=== PATIENT | male | born 1955 | race Caucasian/White ===

== ENCOUNTER 2017-01-13 21:26 | Observation (INO) | payer OTHER ==
[~2017-01-13] VITALS: Ht 182.9 cm; Wt 111.0 kg
[2017-01-13 21:39] VITALS: BP 145/88; PULSE 77; RESP 20; O2SAT 97
--- NOTE | 2017-01-13 22:07 | ED.REPORT ---
HPI-Back Pain 40 and Over Date of Service Jan 13, 2017 ED Provider: Geoff Kyle DO Pt is a 61 year old male with a history of HTN and chronic back pain who presents to the ED via EMS complaining of worsening back pain onset this morning when he woke up. He denies abdominal pain and any other symptoms. He was unable to get up from the floor secondary to his pain, prompting him to call EMS. The pt reports that he was doing yard work for the last 2 days, resulting in his back pain. Pt has took Advil as well as Tylenol and Codeine today with minimal relief. Nursing Notes Stated Complaint: BACK PAIN Chief Complaint: Back Pain or Injury Nursing Notes Reviewed: Yes Allergies: Coded Allergies: Penicillins (Verified Allergy, Unknown, swelling, 01/13/17) General Time Seen by MD: 22:07 Chief Complaint Back pain Hx Obtained From: Patient, EMS Arrived By: Ambulance Sudden in Onset?: No Onset Occurred: 5 - 8 hours ago Symptom Duration: Since onset Location: : Generalized Quality: Painful Radiation: : Does not radiate Severity: Current: Moderate Severity: Maximum: Moderate Recent Healthcare: No recent doctor visit, No recent hospitalization Similar Sx Previous: No Past Medical History Past Medical History Chronic back pain Reports: Hypertension Past Surgical History Denies Smoking History Current Every Day Smoker Social History Other Social History: Good social support Ambulatory Status Independent Review of Systems Constitutional: Denies: Fever Respiratory: Denies: Non-productive cough, Shortness of breath Cardiovascular: Reports: Chest pain GI: Denies: Abdominal pain Musculoskeletal: Reports: Back pain Complete sys rev & neg: except as marked. Physical Exam Initial Vital Signs Vital Signs (First) Date Time Temp Pulse Resp B/P Pulse Ox O2 Delivery O2 Flow Rate FiO2 01/13/17 21:39 36.7 77 20 145/88 97 Room Air Initial VS: Reviewed Head / Eyes: Atraumatic, Normocephalic Neck: Supple, Full range of motion Extremities: Vascular intact, Neuro intact Skin: Warm, Dry, No cyanosis Psychiatric: Mood/affect normal, Behavior normal General/Constitutional: Awake, Alert Respiratory / Chest: Atraumatic, Breath sounds NL, Breath sounds = bilat Cardiovascular: Heart rate NL, Regular rhythm, Heart sounds NL Abdomen: Atraumatic, Soft, Non-tender No abdominal bruits BACK: Reproducible pain with straight leg raising. Neurologic: Oriented X3, Speech NL, CN II - XII intact Interpretation & Diagnostics CT ANGIOGRAM ABDOMEN, CHEST, PELVIS: Conclusion: There is no evidence of abdominal aortic aneurysm or dissection. There is left nephrolithiasis without evidence of hydronephrosis. There is calcification in the right adrenal gland which may be the residual of previous granulomatous disease Transmitted to the Ed at 00:23 by Gallo Reeder MD Lab Results Interpretation Result Diagram: 01/13/17 2302 01/13/17 2302 Test 01/13/17 23:02 01/14/17 01:38 White Blood Count 7.8th/mm3 (3.8-10.1) Red Blood Count 4.69mil/mm3 (4.40-5.80) Hemoglobin 14.4g/dL (13.8-17.2) Hematocrit 41.2% (41.0-50.0) Mean Corpuscular Volume 87.8fL (81-100) Mean Corpuscular Hemoglobin 30.7pg (27.0-35.0) Mean Corpuscular Hemoglobin Concent 35.0% (32.0-37.0) Red Cell Distribution Width 12.5% (12.3-15.4) Platelet Count 217bil/L (150-400) Neutrophils (%) (Auto) 64.1% (40-74) Lymphocytes (%) (Auto) 20.9% (14-46) Monocytes (%) (Auto) 8.7% (4-12) Eosinophils (%) (Auto) 5.5% (0-5) Basophils (%) (Auto) 0.4% (0-3) D-Dimer 0.52mg/L FEU (<0.50) Sodium Level 141mEq/L (134-144) Potassium Level 4.0mEq/L (3.5-5.2) Chloride Level 105mEq/L (97-108) Carbon Dioxide Level 25mmol/L (18-29) Blood Urea Nitrogen 17mg/dL (8-27) Creatinine 1.04mg/dL (0.76-1.27) Estimat Glomerular Filtration Rate 77mL/min (>59) Glucose Level 133mg/dL (60-99) Calcium Level 8.6mg/dL (8.5-10.1) Total Bilirubin 0.2mg/dL (0.0-1.2) Aspartate Amino Transf (AST/SGOT) 19U/L (0-50) Alanine Aminotransferase (ALT/SGPT) 19U/L (0-44) Alkaline Phosphatase 73U/L (25-160) Total Protein 6.5g/dL (6.4-8.4) Albumin 3.7g/dL (3.4-5.0) Hold Velez Top Tube Received (Received) Lab Results Interpretation: Troponin - negative ECG Interpretation Time: 23:27 Interpreted by: ED physician Normal ECG Interpretation: Normal ECG w/ rate of... (61) Re-Eval/Medical Decision Med Decision/Clinical Course Myocardial infarction, dissection and AAA rupture all ruled out. Mr. Gray received IV opiates. He then became precipitously hypotensive. He developed chest pain. This all resolved with fluids. This is what prompted the CT scanning and EKG and troponin. His pain was adequately controlled until he tried to move. Once he tried to move up off the bed the pain was too severe. He is not at all comfortable being discharged home. I consulted with our hospitalist we will admit him for pain control. Source of Hx: Old records Re-Evaluation/Progress #1: Time of Eval: 23:20 Re-Evaluation/Progress Note: Pt rechecked. Precipitous drop in blood pressure to 50 after he developed chest pain, requiring an ECG. His back is completely pain free now. All questions addressed. Re-Evaluation/Progress #2: Time of Eval: 00:56 Re-Evaluation/Progress Note: Pt rechecked. Informed pt of results. His reports that the pt has similar blood pressure symptoms when he had a colonoscopy. He is pain free and his vitals are normal. He is responding to fluids. All questions addressed. Re-Evaluation/Progress #3: Time of Eval: 01:49 Re-Evaluation/Progress Note: Pt informed of plan for admission. Pt understands and agrees with plan for admission. All questions addressed. Consultation #1: Call Returned at: 01:48 Note: Spoke with pt's nurse. Per nurse, the was expressing concern about taking the patient home as he was unable to get up from the floor after laying down. She would like for the pt to be admitted. Consultation #2: Referral / Consult Name: Sullenberger,Nuha E DO Call Returned at: 02:12 [place]: Will see patient, Agrees with eval, Agrees with plan, Accepts admit Counseled Regarding: Diagnosis, Lab results, Need for admission Discharge & Departure Impression: Primary Impression: Intractable back pain Disposition: ADMITTED TO HOSPITAL Discharge Condition All VS Reviewed: Yes Condition: Stable Referrals: NENITA (PCP) Scribe Attestation Portions of this note were transcribed by Lourdes Tian. I, Dr. Kyle personally performed the history, physical exam and medical decision-making; I reviewed and confirmed the accuracy of the information in the transcribed note. Signed by : Gail Reyez, 01/13/17. copies to: Geoff Webster DO Jan 13, 2017 22:07 Lourdes Gonzáles Jan 13, 2017 22:37
[2017-01-13] MEDS ORDERED: HYDROmorphone 0.5 mg/0.5 mL iSecure Syringe IVPUSH PRN (22:35)
[2017-01-13] MEDS ORDERED: Dexamethasone 10 mg/mL Inj IVPUSH ONE (22:35)
[2017-01-13 23:06] LABS: BASOPHILS % (AUTO) 0.4 % (0-3); EOSINOPHILS % (AUTO) 5.5 % (0-5); MONOCYTES % (AUTO) 8.7 % (4-12); Mean Corpuscular Hemoglobin 30.7 pg (27.0-35.0); Mean Corpuscular Volume 87.8 fL (81-100); NEUTROPHILS % (AUTO) 64.1 % (40-74); Platelet Count 217 bil/L (150-400)
[2017-01-13 23:15] VITALS: BP 106/62; PULSE 45; RESP 16; O2SAT 94
[2017-01-13 23:25] VITALS: BP 67/36; PULSE 51; RESP 13; O2SAT 96
[2017-01-13] MEDS ORDERED: 0.9% Sodium Chloride 1,000 ML IV ONE (23:25)
[2017-01-13 23:38] VITALS: BP 101/64; PULSE 76; RESP 13; O2SAT 95
[2017-01-13 23:40] VITALS: BP 109/63; PULSE 75; RESP 13; O2SAT 96
[2017-01-14 00:10] VITALS: BP 129/80; PULSE 84; RESP 17; O2SAT 96
[2017-01-14] MEDS ORDERED: _HYDROcodone/APAP 5-325 mg Tablet PO PRN (01:30)
[2017-01-14] MEDS ORDERED: _oxyCODONE/APAP 5-325 mg Tablet PO PRN (01:50)
[2017-01-14] MEDS ORDERED: Polyethylene Glycol (PEG) 17 Gm Powder PO PRN (02:25)
[2017-01-14] MEDS ORDERED: Ondansetron 2 mg/mL 2 mL Inj IVPUSH PRN (02:25)
[2017-01-14] MEDS ORDERED: Alum-Mag Hydrox-Simeth 30 mL Suspension PO PRN (02:25)
[2017-01-14 02:27] VITALS: BP 146/90; PULSE 89; RESP 14; O2SAT 95
--- NOTE | 2017-01-14 02:40 | PCM.HPMED ---
Subjective Date of Service Jan 14, 2017 Primary Provider: Admitting Physician: Nuha Mccoy DO Primary Care Physician: Noel Attending Physician: Nuha Mccoy DO Chief Complaint: Intractable back pain and hypotension History of Present Illness: 61-year-old male with history of hypertension chronic back pain who presented to the emergency department due to intractable back pain, R>L, that started this morning when he awoke. The patient states yesterday he was working in the yard with a prolonged time spent in a single position. He was not having pain yesterday evening. When he awoke this morning his low back was sore and gradually tightened up and pain increased until he was unable to carry on any level of activity. Patient denies focal neurological deficits, numbness or tingling, or shooting pain. Denies saddle paresthesia as well as being unable to control his bowel or bladder. In the emergency room the patient was given 0.5 mg of Dilaudid which dropped his systolic blood pressure into the mid 50s and the patient developed chest pain and shortness of breath. This resolved with fluid administration. EKG and troponin were unremarkable. Patient was then sent to CT for chest/abdomen/pelvis which was negative for AAA. Of note there was a nonobstructive nephrolithiasis. Patient denies fever, chills, nausea, vomiting, diarrhea, dysuria, hematuria, or chest/abdominal pain. His chronic low back pain has been managed successfully with chiropractics over the last couple of year. Review of Systems: Complete review of systems performed; pertinent positives and negatives per history of present illness, all other systems reviewed and are negative Allergies Coded Allergies: hydromorphone (Verified Allergy, Severe, Severe hypotension, 01/14/17) Penicillins (Verified Allergy, Unknown, swelling, 01/13/17) Home Medications Aspirin 81mg PO daily Cetirizine HCL 10mg PO Daily Ibuprofen 800mg PO TID PRN Losartan 50mg PO dialy PMH Hypertension Chronic back pain Surgical History None reported Family History Mother alive with DM2 and HTN Father of colon cancer Social History Hx Alcohol Use: Yes (1 drink daily with more on the weekend) Hx Substance Use: No Hx Tobacco Use: Yes Smoking Status: Light Tobacco Smoker Living Arrangement: with Family Exam Vital Signs Vital Sign - Last Date Time Temp Pulse Resp B/P Pulse Ox O2 Delivery O2 Flow Rate FiO2 01/14/17 00:10 84 17 129/80 96 Room Air 01/13/17 21:39 36.7 Intake and Output 01/13/17 01/13/17 01/14/17 Cumulative From/Thru 15:00 23:00 07:00 01/13/17 21:39 - 01/13/17 23:20 Intake Total 1000 ml 1000 ml Balance 1000 ml 1000 ml Intake IV Total 1000 ml 1000 ml Exam General: Uncomfortable age-appropriate male HEENT: PERRLA, EOMI, nonicteric, membranes moist Lymph: No lymphadenopathy Cardio: [place] with regular rhythm no murmurs rubs or gallops Respiratory: CTA bilaterally, no wheezes, no crackles Abdomen: Soft, positive bowel sounds, nontender, nondistended Extremities/musculoskeletal: No edema, sensation intact; no saddle paresthesia; lumbar spasm R>L Psych: Appropriate mood and affect Neuro: CN II through XII grossly intact, sensation intact throughout Skin: No rash Lab and Diagnostics Result Diagram: 01/13/17 2302 01/13/17 2302 X-Rays, CTs and MRIs CT chest abdomen and pelvis Wet read: Conclusion: There is no evidence of abdominal aortic aneurysm or dissection. There is left nephrolithiasis without evidence of hydronephrosis. There is calcification in the right adrenal gland which may be the residual of previous granulomatous disease Transmitted to the Ed at 00:23 by Gallo Reeder MD Assessment & Plan 61-year-old male with a history of hypertension and chronic back pain who presented to the emergency department with intractable back pain and then developed hypotension after administration of 0.5 mg of Dilaudid Acute on chronic intractable back pain; present on admission; ongoing -Likely due to physical overexertion with strain -CT of the abdomen/chest/pelvis do not reveal aneurysm or retroperitoneal abscess -Patient had severe reaction to Dilaudid with symptomatic hypotension -Percocet 5-10mg for pain control; attempted Morphine but we are out of IV -Avoid Dilaudid due to reaction -Physical therapy consult for help with mobilization and stretches/exercises Symptomatic hypotension; present on admission; ongoing -After patient was given Dilaudid he developed severe hypotension with associated chest pain shortness of breath -Troponin was negative and EKG was unremarkable -Responded well to fluids -Continue 100 mL normal saline overnight and discontinue in a.m. -Trend troponin Hyperglycemia; present on admission; ongoing -Likely related to catecholamine release due to severe pain -Continue to trend -A1c ordered Hypertension; present on admission; ongoing -Continue home medications once these are confirmed Disposition: Patient has been admitted to the general medical floor under observation Pain Evaluation: Pain not Controlled VTE Prophylaxis: Sub-Q Heparin (Unfractionated) VTE Mechanical Devices: Intermittant Pneumatic CD Resuscitation Status: CPR: Attempt Resuscitation Attending Statement The patient was seen and examined together with house staff on 01/14/2017 and I agree with the history, exam and plan as outlined in the note above. Molina Kent DO Jan 14, 2017 02:40 Nuha Mccoy DO Jan 14, 2017 06:22
[2017-01-14 03:07] VITALS: BP 129/87; PULSE 87; RESP 20; O2SAT 94
[2017-01-14] MEDS ORDERED: ASPI-973 PO (03:08)
[2017-01-14] MEDS ORDERED: CHOL200025 PO (03:08)
[2017-01-14] MEDS ORDERED: CETI10CA PO (03:08)
[2017-01-14] MEDS ORDERED: LOSA50TA37 PO (03:08)
[2017-01-14] MEDS ORDERED: IBUP800T28 PO (03:10)
--- NOTE | 2017-01-14 04:04 | NUR ---
Admit to 1028 Pt arrived alert and fully oriented, transferred to bed with slide board. Significant back pain with movement, otherwise pt states his pain is "not bad" at 3/10. IV fluids infusing, pulse oximetry set for high risk of MITESH, SCDs applied. Oriented to call light, hospital routines, plan of care; hourly rounding ongoing.
[2017-01-14] MEDS: 0.9% Sodium Chloride 1,000 ML IV SCH ×2 (04:12→12:35)
[2017-01-14] MEDS: Heparin 5,000 Unit/mL Inj SUBQ SCH ×2 (08:19→17:21)
[2017-01-14] MEDS: oxyCODONE-Acetamin 5-325 mg Tablet PO PRN (08:20)
--- NOTE | 2017-01-14 08:20 | DRSVH ---
PROCEDURE: CT ANGIO CHEST ABDOMEN AND PELVIS INDICATIONS: low back pain, chest pain blood pressure 78 TECHNIQUE: Precontrast 5 mm thick sections acquired from the lung apices to the iliac crests. After the adminis tration of intravenous contrast, 3 mm thick sections again acquired from the lung apices to the iliac crests. 3-dimensional maximum intensity projection (MIP) oblique sagittal and coronal reformats wer e then acquired, and/or 3-dimensional volume rendering reformats. For radiation dose reduction, the following was used: automated exposure control. COMPARISON: None. FINDINGS: Preliminary report by shift mgr radiology Image quality: Mild motion artifact. AORTA: Intramural hematoma: Absent Maximum hematoma thickness: N./A. Focal contrast enhancement: Intramural blood pool: Absent Ulcer-like projection: Absent Dissection: Absent [place] classification: N./A. Maximum aortic diameter: 3.0 cm. Periaortic hematoma: Absent CHEST: Lungs and pleura: No acute airspace opacities. No pleural effusions or pneumothorax. Central and p eripheral airways are patent and normal in caliber. The left common carotid artery arises from the ba se of the innominate artery, normal variant. Mediastinum: Heart size is normal. No pericardial effusion. No mediastinal or hilar adenopathy by size criteria. Central pulmonary arteries are normal in size. Esophagus is normal in caliber. No h iatal hernias. Bones and chest wall: No axillary adenopathy by size criteria. Thyroid gland appears normal. No yao spicious bony lesions. No vertebral body compression fractures. ABDOMEN: Vasculature: Celiac trunk and mesenteric arteries are patent. Renal arteries are also patent. Solid organs: Liver and spleen are normal in size. Gallbladder appears normal. Biliary system is n on dilated. Pancreas enhances normally. No adrenal nodules, calcifications on the right. Both kidn eys are normal in size and enhancement, without hydronephrosis. Nonobstructing calculus lower pole le ft kidney. Peritoneum and bowel: No free fluid or air. Bowel loops are normal in caliber and wall thickness. Normal appendix. Nodes and vessels: No retroperitoneal or mesenteric adenopathy by size criteria. Inferior vena cava is normal in morphology. Miscellaneous: Small fat filled umbilical hernia. PELVIS: Genitourinary: Bladder is distended, extending to the level of the umbilicus, wall thickness is norm al. Prostate appears normal for age. Miscellaneous: No inguinal hernias or adenopathy. Bones: No suspicious bony lesions. No vertebral body compression fractures. Degenerative disc disea se thoracic and lumbar spine. IMPRESSION: 1. Aorta and major branches are intact without evidence of aneurysmal dilatation or dissection. 2. No acute osseous abnormality identified. There is multilevel thoracic and lumbar discopathy. 3. Urinary bladder is distended to the level of the umbilicus without evidence of measurable BPH. 4. Calcifications in the right adrenal gland. 5. Left nephrolithiasis. 6. Small fat filled periumbilical hernia Findings are concordant with the preliminary report. Dictated by: Jamal Melvin M.D. on 01/14/2017 at 8:07 Approved by: Jamal Melvin M.D. on 01/14/2017 at 8:18
--- NOTE | 2017-01-14 12:15 | NUR ---
Social Work: Initial Assessment/Readiness for D/C/ Multidisciplinary Rounds D: EMR reviewed. Please see Initial Assessment and Advance Directive Interventions linked to this note for more information. Pt is a 61 year old male admitted [facility] for intractable back pain per H&P. Pt's insurance is [employer]. Pt has no PCP at this time, is in transition. Pt's readmit risk score not entered at this time. Pt discussed in multidisciplinary rounds, PT has cleared pt for home and outpt PT services. Pt has no DME at home, requires walker prior to d/c. VINICIUS acknowledges order from to coordinate walker for pt. SW met with pt and at bedside to conduct initial assessment. Pt was alert and oriented x3. Pt's capacity for self-care assessed. SW explained role and wrote phone number on white board. SW provided [facility] Discharge Planning Checklist and encouraged pt to contact SW for any discharge planning questions. Pt lives at home with his spouse in [place]. Pt is independent with all ADLs and self-care. 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 Pt owns no DME. Pt ambulates independently at baseline. Pt drives. Pt has no DPOA, agreeable to paperwork provided at bedside. No HH or SNF history. Pt's to provide transportation home at d/c. Discussed options related to obtaining walker, pt prefers insurance. Discussed that it will likely be delivered tomorrow. Pt and agreeable. wrote script for walker, CELESTINA requested to fax it to [facility] and request delivery as soon as able. No additional d/c planning needs at this time, SW will continue to follow. A: Pt who is independent at baseline and has the capacity for self-care. P: Pt anticipated to discharge home with to transport via POV. Script for front wheeled walker to be faxed to [facility] by ASSISTANT ANALYST. Fww to be delivered to hospital prior to d/c. SW will continue to follow for additional needs until time of discharge. Keyonna Del Toro, TOWER OPERATOR
--- NOTE | 2017-01-14 12:22 | NUR ---
NEW DME REQUEST : Faxed prescription to [facility] [phone], walker needs to be delivered to patient's room Addendum: 01/14/17 at 1442 by JORGE BALLARD CM [facility] is unable to fill this prescription due to no contract with patient's insurance. Faxed prescription to [facility] [phone] and asked for delivery to hospital room and placed that on fax cover sheet. Updated EATING DISORDER SPECIALIST
[2017-01-14 17:00] VITALS: BP 145/80; PULSE 96; RESP 20
--- NOTE | 2017-01-14 19:06 | NUR ---
Back Pain Patient states that his back pain is much improved. Patient has walked multiple laps around koch this shift. Care is ongoing.
[2017-01-14 20:21] VITALS: BP 152/77; PULSE 85; RESP 20; O2SAT 96
[2017-01-15 00:15] VITALS: BP 115/69; PULSE 76; RESP 18; O2SAT 97
[2017-01-15] MEDS: 0.9% Sodium Chloride 1,000 ML IV SCH ×2 (00:36→08:35)
[2017-01-15] MEDS: Heparin 5,000 Unit/mL Inj SUBQ SCH ×2 (00:37→08:51)
[2017-01-15 05:26] VITALS: BP 125/78; PULSE 75; RESP 18; O2SAT 97
--- NOTE | 2017-01-15 06:06 | NUR ---
Activity Pain under good control. Pt able to ambulate with FWW. Declined pain medication. Hourly rounding ongoing.
[2017-01-15 08:29] VITALS: BP 143/95; PULSE 74; RESP 18
[2017-01-15] MEDS: oxyCODONE-Acetamin 5-325 mg Tablet PO PRN (10:49)
[2017-01-15] MEDS ORDERED: CYCL10TA9 PO ×3 (11:47→12:07)
[2017-01-15] MEDS ORDERED: OXYC1TAB24 PO ×3 (11:47→12:07)
--- NOTE | 2017-01-15 11:51 | PCM.DIMED ---
Discharge Instructions Date of Service Jan 15, 2017 Dates of Hospitalization Jan 14, 2017 at 02:19 Discharge Diagnosis Discharge Diagnosis # Acute on chronic back pain; present on admission. Improving. -Likely due to physical overexertion, strain and spasm # Acute symptomatic hypotension on admission after receiving IV Dilaudid for pain control. Resolved. # Acute hyperglycemia; present on admission. Likely related to stress and pain. - HgA1C 5.9 # History of hypertension. Stable. Diet Discharge Diet: Low fat, Low Sodium, Heart Healthy Activity Discharge Activity: No restrictions Call your provider Call your provider for: Fever or Chills, Shortness of breath, Chest pain, Vomitting, Weakness (unilateral) Patient Instructions Patient Instructions Seek immediate medical attention if any new or worsening signs or symptoms occur. Follow-up plan 1. Followup with primary care provider in 2-7 days Benja Keating Jan 15, 2017 11:51
--- NOTE | 2017-01-15 11:55 | PCM.DC.MED ---
Discharge Summary Date of Service Jan 15, 2017 Dates of Hospitalization Date of Hospital Admission Jan 14, 2017 at 02:19 Date of Discharge: Jan 15, 2017 Providers: Admitting Physician: Nuha Mccoy DO Primary Care Physician: Noel Attending Physician: Vargas Suarez MD Diagnosis at Time of Discharge Diagnosis at Time of Discharge # Acute on chronic back pain; present on admission. Improving. -Likely due to physical overexertion, strain and spasm # Acute symptomatic hypotension on admission after receiving IV Dilaudid for pain control. Resolved. # Acute hyperglycemia; present on admission. Likely related to stress and pain. - HgA1C 5.9 # History of hypertension. Stable. Procedures XRay, CTs & MRIs CT chest abdomen and pelvis Wet read: Conclusion: There is no evidence of abdominal aortic aneurysm or dissection. There is left nephrolithiasis without evidence of hydronephrosis. There is calcification in the right adrenal gland which may be the residual of previous granulomatous disease Transmitted to the Ed at 00:23 by Gallo Reeder MD Brief History As noted in H&P by Dr. Kent: 61-year-old male with history of hypertension chronic back pain who presented to the emergency department due to intractable back pain, R>L, that started this morning when he awoke. The patient states yesterday he was working in the yard with a prolonged time spent in a single position. He was not having pain yesterday evening. When he awoke this morning his low back was sore and gradually tightened up and pain increased until he was unable to carry on any level of activity. Patient denies focal neurological deficits, numbness or tingling, or shooting pain. Denies saddle paresthesia as well as being unable to control his bowel or bladder. In the emergency room the patient was given 0.5 mg of Dilaudid which dropped his systolic blood pressure into the mid 50s and the patient developed chest pain and shortness of breath. This resolved with fluid administration. EKG and troponin were unremarkable. Patient was then sent to CT for chest/abdomen/pelvis which was negative for AAA. Of note there was a nonobstructive nephrolithiasis. Patient denies fever, chills, nausea, vomiting, diarrhea, dysuria, hematuria, or chest/abdominal pain. His chronic low back pain has been managed successfully with chiropractics over the last couple of year. Hospital Course # Acute on chronic intractable back pain; present on admission - Much improved prior to discharge home - Seen and evaluated by physical therapy who has cleared him for discharge home - Suspect presenting symptoms likely due to strain and muscle spasm # Symptomatic hypotension; present on admission. Resolved. - After patient was given Dilaudid he developed severe hypotension with associated chest pain shortness of breath - Troponin was negative and EKG was unremarkable - Responded well to fluids # Hyperglycemia; present on admission - Likely related to catecholamine release due to severe pain - HgA1C 5.9 # History of Hypertension; present on admission. Stable. By day of discharge denies any focal weakness, numbness, parasthesia, change in urine or bowel. Exam Vital Signs (Last) Date Time Temp Pulse Resp B/P Pulse Ox O2 Delivery O2 Flow Rate FiO2 01/15/17 08:29 36.8 74 18 143/95 Room Air 01/15/17 05:26 97 Exam Lungs: CTA bilat CV: RRR Abd: Soft, NT, ND, +BS Neuro: Non-focal Test 01/13/17 23:02 01/14/17 00:00 01/14/17 07:35 White Blood Count 7.8th/mm3 (3.8-10.1) Red Blood Count 4.69mil/mm3 (4.40-5.80) Hemoglobin 14.4g/dL (13.8-17.2) Hematocrit 41.2% (41.0-50.0) Mean Corpuscular Volume 87.8fL (81-100) Mean Corpuscular Hemoglobin 30.7pg (27.0-35.0) Mean Corpuscular Hemoglobin Concent 35.0% (32.0-37.0) Red Cell Distribution Width 12.5% (12.3-15.4) Platelet Count 217bil/L (150-400) Neutrophils (%) (Auto) 64.1% (40-74) Lymphocytes (%) (Auto) 20.9% (14-46) Monocytes (%) (Auto) 8.7% (4-12) Eosinophils (%) (Auto) 5.5% (0-5) Basophils (%) (Auto) 0.4% (0-3) D-Dimer 0.52mg/L FEU (<0.50) Sodium Level 141mEq/L (134-144) Potassium Level 4.0mEq/L (3.5-5.2) Chloride Level 105mEq/L (97-108) Carbon Dioxide Level 25mmol/L (18-29) Blood Urea Nitrogen 17mg/dL (8-27) Creatinine 1.04mg/dL (0.76-1.27) Estimat Glomerular Filtration Rate 77mL/min (>59) Glucose Level 133mg/dL (60-99) Calcium Level 8.6mg/dL (8.5-10.1) Total Bilirubin 0.2mg/dL (0.0-1.2) Aspartate Amino Transf (AST/SGOT) 19U/L (0-50) Alanine Aminotransferase (ALT/SGPT) 19U/L (0-44) Alkaline Phosphatase 73U/L (25-160) Total Protein 6.5g/dL (6.4-8.4) Albumin 3.7g/dL (3.4-5.0) Hold Velez Top Tube Received (Received) Hemoglobin A1c 5.9% (4.8-5.6) Troponin T 0.010ug/L (0.0-0.011) Discharge Medications Discharge Medications Aspirin (Aspirin) 81 Mg Tablet 81 MG PO DAILY (Reported) Cetirizine HCl (Zyrtec) 10 Mg Capsule 10 MG PO DAILY (Reported) Cholecalciferol (Vitamin D3) (Vitamin D3) 2,000 Unit Tablet 2,000 UNIT PO DAILY (Reported) Losartan Potassium (Losartan Potassium) 50 Mg Tablet 50 MG PO DAILY (Reported) As needed Cyclobenzaprine (Cyclobenzaprine) 10 Mg Tablet 10 MG PO TID PRN PRN For Spasm Prescribed by: BENJA MATA MD Ibuprofen (Ibuprofen) 800 Mg Tablet 800 MG PO TID PRN PRN For Pain (Reported) oxyCODONE-Acetaminophen 5-325 mg (oxyCODONE-Acetaminophen 5-325 mg) 1 Each Tablet 1-2 TAB PO Q4H PRN PRN For Pain Prescribed by: BENJA MATA MD Followup Plan Disposition: Home Follow-up plan 1. Followup with primary care provider in 2-7 days Discharge Diet: Low fat, Low Sodium, Heart Healthy Discharge Activity: No restrictions Patient Instructions Seek immediate medical attention if any new or worsening signs or symptoms occur. Time spent 30 min Benja Mata Jan 15, 2017 11:55
--- NOTE | 2017-01-15 13:45 | NUR ---
Social Work- Discharge Data: EMR reviewed. Pt is on day 1 of hospitalization for intractable back pain. Pt discussed in multidisciplinary rounds, pt to discharge today. Discharge orders are active. Pt to receive walker from [facility] prior to discharge. Pt has not received his walker at this time, T/C to [facility] regarding delivery of walker and the delay. 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 Updated patient and . Pt and are understanding, pt has been ambulating with a walker and has not tried to ambulate without. Pt declines any other d/c needs or questions, hopeful that the walker is delivered shortly. SW continues to follow until walker is delivered. Assessment: Pt who is independent with needs at baseline, now requiring use of a walker. Plan: Pt to discharge home today pending delivery of walker. [employer] awaiting phone call regarding delivery time of walker. No additional d/c needs, SW continues to follow. FELIBERTO Mcdonough
--- NOTE | 2017-01-15 16:16 | NUR ---
Discharge note- Back discomfort controlled with ordered pain meds. Patient up ambulating with fww and tolerating activity well. Discharged to home with and personal belongings after walker delivered to room by [employer].
== END 2017-01-15 15:44 | disposition home or self-care (01) ==
LOC: SED 21:26 → EDBD 21:26 → OSC 01-14 02:19
PROVIDERS: ADMIT Internal Medicine; ATTEND Internal Medicine
DX: M54.89 Other dorsalgia (principal); I10 Essential (primary) hypertension; I95.9 Hypotension, unspecified; R73.9 Hyperglycemia, unspecified; F17.210 Nicotine dependence, cigarettes, uncomplicated; Z88.0 Allergy status to penicillin; Z79.82 Long term (current) use of aspirin
CPT/HCPCS: 36415; 71275; 74174; 80053; 82948; 83036; 84484; 85025; 85378; 93005; 96361; 96372; 96374; 96375; 97116; 97162; 99285; G0378; J1100; J1170; J1644; J1885; J7030; Q9967